=== PATIENT | male | born 1945 | race Caucasian/White ===

== ENCOUNTER 2017-12-27 14:19 | Day surgery (SDC) | payer MEDICARE, BC ==
[~2017-12-27] VITALS: Ht 170.2 cm; Wt 99.0 kg
[2017-12-27 14:59] VITALS: BP 133/93; PULSE 98; TEMP 97.5
[2017-12-27] MEDS ORDERED: KEPPRA 500MG500 MG PO (15:09)
[2017-12-27] MEDS ORDERED: LOPRESSOR 550 MG/TAB PO (15:10)
[2017-12-27] MEDS ORDERED: ZOLOFT 100MG100 MG PO (15:10)
[2017-12-27] MEDS ORDERED: LIPITOR 40MG TA40 MG PO (15:11)
[2017-12-27] MEDS ORDERED: NORVASC 5MG5 MG/TAB PO (15:11)
[2017-12-27] MEDS ORDERED: PRINIVIL40 MG PO (15:11)
[2017-12-27] MEDS ORDERED: MYRBETR25MG PO (15:12)
[2017-12-27] MEDS ORDERED: RT SPIRIVA18 MCG IH (15:12)
[2017-12-27 19:30] VITALS: BP 134/57; PULSE 89; TEMP 97.4
[2017-12-27 19:45] VITALS: BP 134/72; PULSE 90; TEMP 97.4
[2017-12-27 20:00] VITALS: BP 155/76; PULSE 91
[2017-12-27 20:15] VITALS: BP 144/87; PULSE 91
[2017-12-27 21:15] VITALS: BP 148/73; PULSE 92
== END 2017-12-27 22:20 | disposition home or self-care (01) ==
LOC: SDCO 14:19 → SURG 19:04 → SDCO 22:20
DX: C67.9 Malignant neoplasm of bladder, unspecified (principal); J44.9 Chronic obstructive pulmonary disease, unspecified; F32.9 Major depressive disorder, single episode, unspecified; I10 Essential (primary) hypertension; E78.00 Pure hypercholesterolemia, unspecified; K58.9 Irritable bowel syndrome, unspecified; R56.9 Unspecified convulsions; F17.210 Nicotine dependence, cigarettes, uncomplicated; G47.33 Obstructive sleep apnea (adult) (pediatric); K21.9 Gastro-esophageal reflux disease without esophagitis; Z98.52 Vasectomy status; Z88.0 Allergy status to penicillin
CPT/HCPCS: OP; C1769; J0690; J1100; J2270; J2405; J2704; J3010; J7120; Q9967